=== PATIENT | female | born 1955 | race Two or more races ===

== ENCOUNTER → 2024-11-25 | Outpatient (CLI) | payer OTHER, MEDICAID, SELFPAY ==
--- NOTE | 2024-11-25 | XR_ITS ---
Examination: Knee bilateral, 6 views Technique: Knee AP, lateral, oblique each knee total 6 views Date and time of exam: November 25, 2024 1232 hours INDICATIONS: Bilateral knee pain beginning 5 years ago FINDINGS: Severe osteopenia Mild narrowing medial joint spaces bilaterally No fracture or dislocation Small bilateral knee effusions IMPRESSION: Severe osteopenia Mild narrowing medial joint spaces bilaterally
== END | disposition home or self-care (01) ==
LOC: CDIM 12-03 07:32
PROVIDERS: PCP Nurse Practitioner Family; Referring Provider Nurse Practitioner Family; Visit Provider Nurse Practitioner Family
DX: M85.89 Other specified disorders of bone density and structure, multiple sites (principal); M25.862 Other specified joint disorders, left knee; M25.861 Other specified joint disorders, right knee
CPT/HCPCS: 73562

== ENCOUNTER → 2025-05-12 | Outpatient (CLI) | payer OTHER, MEDICAID, SELFPAY ==
--- NOTE | 2025-05-12 13:51 | XR_ITS ---
Examination: Pelvic ultrasound, transabdominal, complete Technique: Transabdominal ultrasound of the pelvis performed using grayscale imaging Date and time of exam: May 12, 2025 1402 hours INDICATIONS: Vaginal pain and bleeding beginning one month ago FINDINGS: Uterus 6.5 cm endometrial stripe 0.3 cm No uterine mass Ovaries obscured by bowel gas IMPRESSION: Negative for uterine mass
--- NOTE | 2025-05-12 13:51 | XR_ITS ---
Examination: Transvaginal ultrasound of the pelvis, complete Technique: Transvaginal sonographic images pelvis performed using cook scale imaging Exam date and time: May 12, 2025 1411 hours INDICATIONS: Vaginal bleeding beginning one month ago FINDINGS: Uterus 5.5 cm with small calcifications no discrete uterine mass Endometrial stripe 0.3 cm Right ovary 1.6 cm arterial flow Left ovary 1.7 cm arterial flow IMPRESSION: Negative for uterine mass.
== END | disposition home or self-care (01) ==
LOC: CDIM 13:41
PROVIDERS: PCP Nurse Practitioner Family; Referring Provider Nurse Practitioner Family; Visit Provider Nurse Practitioner Family
DX: R10.2 Pelvic and perineal pain (principal)
CPT/HCPCS: 76830; 76856